=== PATIENT | male | born 1935 | race Caucasian/White ===

== ENCOUNTER 2016-07-02 10:19 | Inpatient (IN) ==
[2016-07-02] MEDS ORDERED: HYDROmorphone 2 MG/1 ML VIAL IV STA (11:13)
[2016-07-02] MEDS ORDERED: SODIUM CHLORIDE 0.9% 1,000 ML IV STA (11:13)
[2016-07-02] MEDS ORDERED: ONDANSETRON 4 MG/2 ML VIAL IV STA (11:13)
[2016-07-02] MEDS ORDERED: ALUM/MAG/SIMETH/LIDO VISC 1:1 30 ML BOTTLE PO STA (11:13)
[2016-07-02] MEDS ORDERED: PANTOPRAZOLE 40 MG VIAL IV STA (11:13)
--- NOTE | 2016-07-02 11:24 | Emergency Department Note ---
Dylan Turcios Brittany, am scribing for, and in the presence of, Mahin Parsons MD 11:22. Issa Turcios Charles R, MD, personally performed the services described in this documentation, ascribed by Kristal Richardson in my presence, and it is both accurate and complete . Arrival - Arrival Chief Complaint: Weakness Stated Complaint: ca pt/dehydrated ED Nursing Triage Note: increased weakness over the past several days after taking his last chemo and radiation for colon cancer. Mode of Arrival: Wheelchair Limitations: No Limitations Source: Patient Time Seen by Provider: 07/02/16 10:46 - History of Present Illness HPI Narrative: This is a 80 y/o white male,who presents to the ED with c/o weakness which started 6 days ago. He has a known Hx of colrectal cancer. He states after his last chemo and radiation Txs he started to feel weak. He has had N/V/D. He reports he has noticed bright red blood in his stools. He denies any pain or fever. He states normally gets weak after chemo and radiation Tx, but this time he noticed the weakness to be increased. He states he is only able to drink water. Pt has no other complaints/pain in the ED at this time. Pt has a PMHx of colrectal cancer. Pt denies a surgical and family medical Hx. Pt is a former smoker. Onset (ago): day(s) (Started 6 days ago) Consistency: constant Severity: moderate Allergies/Adverse Reactions: Allergies Allergy/AdvReac Type Severity Reaction Status Date / Time No Known Allergies Allergy Unverified 07/02/16 10:32 Review of System - Review of System 12 point system: reviewed and no additional remarkable complaints except as stated - Review of System Constitutional: Present: weakness. Absent: fever Gastrointestinal: Present: nausea, vomiting, diarrhea (Blo), hematochezia Medical,Surgical,& Family Hx - Medical History Gastrointestinal: History of: Gastrointestinal Cancer (colrectal cancer) - Social History Smoking Status: Former smoker Exam Vital Signs: Vital Signs Temperature 98.0 F 07/02/16 10:27 Pulse Rate 84 07/02/16 10:27 Respiratory Rate 18 07/02/16 10:27 Blood Pressure 138/72 07/02/16 10:27 O2 Sat by Pulse Oximetry 94 L 07/02/16 10:27 - General General appearance: alert, in no apparent distress - Head Head exam: Present: atraumatic, normocephalic, normal inspection - Eye Eye exam: Present: other (Sunken eyes, pale conjunctiva) - ENT ENT exam: Present: other (Pale Mucous membranes) - Neck Neck exam: Present: normal inspection, full ROM, trachea midline. Absent: tenderness, thyromegaly - Chest Chest inspection: Present: normal inspection, symmetric chest wall rise. Absent : tenderness, rash, abscess - Respiratory Respiratory exam: Present: normal lung sounds bilaterally. Absent: prolonged expiratory phase, rales, respiratory distress, rhonchi, stridor, wheezes - Cardiovascular Cardiovascular exam: Present: regular rate, normal rhythm, normal heart sounds. Absent: murmur, rubs, gallop, clicks - Abdominal Exam Abdominal exam: Present: soft, hypoactive bowel sounds (Decreased Bowel Sounds) . Absent: distention, tenderness, guarding, rebound, rigidity - Rectal Exam Rectal exam: Present: heme (+) stool - Extremities Exam Extremities exam: Present: normal inspection, full ROM, normal capillary refill. Absent: tenderness, joint swelling, calf tenderness - Back Exam Back exam: Present: normal inspection, full ROM. Absent: tenderness, muscle spasm, rashes - Neurological Exam Neurological exam: Present: alert, oriented X3, CN II-XII intact - Psychiatric Psychiatric exam: Present: normal affect, normal mood. Absent: depressed, agitated, anxious - Skin Skin exam: Present: warm, dry, intact, normal color. Absent: diaphoresis Course - Consultations Consultation #1: Dr. Sanders will admit patient for observation and IV fluids Time: 14:04 Results - Labs CBC & BMP: 07/02/16 11:28 07/02/16 11:28 Lab Results: I have reviewed the patients labs - Diagnostic Findings Procedure: Abdominal x-ray: report reviewed by me (Moderate amout of formed stool in the transverse colon could reflect constipation. ), Chest x-ray: report reviewed by me (No acute abnormality. ) Disposition Clinical Impression: Dehydration, History of colorectal cancer, Generalized weakness, Nausea vomiting and diarrhea Case discussed with: patient, patient's family Disposition: Still a Patient Condition: Stable Time of Disposition: 14:05
[2016-07-02 11:40] LABS: Basophils % 0.6 % (0.0-0.8); Eosinophils # 0.1 10*3/uL (0.0-0.87); Eosinophils % 3.1 % (0.00-10.9); Hematocrit 40.5 VOL% (42.0-52.0); Hemoglobin 13.9 GM/DL (14.0-18.0); Immature Granulocytes % 0.3 %; Immature Granulocytes Absolute 0.01 #; Lymphocytes # 0.2 10*3/uL (1.4-4.0); Lymphocytes % 4.2 % (21.2-54.2); Mean Corpuscular HGB Conc 34.3 GM/DL (32-36); Mean Corpuscular Hemoglobin 28 PG (27-34); Mean Corpuscular Volume 81.7 FL (87-102); Mean Platelet Volume 11.7 FL (9.6-12.0); Monocytes % 0.8 % (1.7-12.7); Neutrophils # 3.3 10*3/uL (1.4-7.4); Platelet Count 102 10*3/uL (130-400); Red Blood Count 4.96 10*6/uL (3.8-5.5); Red Cell Distribution Width 15.5 % (9.3-17.3); White Blood Count 3.6 10*3/uL (4.5-13.71)
[2016-07-02] MEDS ORDERED: ONDANSETRON 4 MG/2 ML VIAL ONE (12:00)
[2016-07-02] MEDS ORDERED: PANTOPRAZOLE 40 MG VIAL IV ONE (12:00)
[2016-07-02] MEDS ORDERED: ALUM/MAG/SIMETH/LIDO VISC 1:1 30 ML BOTTLE PO ONE (12:01)
[2016-07-02] MEDS ORDERED: HYDROmorphone 2 MG/1 ML VIAL ONE (12:01)
--- NOTE | 2016-07-02 12:06 | EKG Report ---
Stationary ECG Study [facility] ER Test Date: 07/02/2016 12:05:29 PM Pat Name: CHANCE VIVAR Department: Room: Gender: M Dat Instructor: ALEXEY Sharma : 1935 Requested by: Mahin Panda Order Number: [id number] Rafael MD: RINKU WHITLEY Intervals [place] Rate: 66 P: 88 [place]: 179 QRS: 68 QRSD: 115 T: -64 QT: 401 QTc: 415 Interpretive Statements SINUS RHYTHM LEFT VENTRICULAR HYPERTROPHY AND ST-T CHANGE Electronically Signed On 07-03-16 09:51:42 CHAIR TRIMMER by RINKU WHITLEY [id number]
[2016-07-02 12:10] LABS: Albumin 3.5 G/DL (3.4-5.0); Bilirubin,Total 1.1 MG/DL (0.2-1.0); Calcium 9.2 MG/DL (8.5-10.1); Magnesium 2.8 MG/DL (1.8-2.4); Potassium 3.3 MMOL/L (3.5-5.1); Total Protein 7.7 G/DL (6.4-8.3); Troponin I Only 0.018 NG/ML (0.00-0.045)
[2016-07-02 12:19] LABS: Band Neutrophils 1 % (0-10); Eosinophils 3 % (0-10); Hypochromasia Slight; Lymphocytes 2 % (20-55); Ovalocytes Slight; Platelet Estimate Decreased; Segmented Neutrophils 93 % (50-85); Total Cells Counted 100
--- NOTE | 2016-07-02 12:28 | XRay Report ---
XR abdomen 2V Indication: Generalized abdominal pain Comparison: None Technique: Frontal views of the abdomen in the supine and upright position Findings: Nonspecific nonobstructive bowel gas pattern. No free intraperitoneal air demonstrated. Lung bases clear. Moderate amount of formed stool demonstrated within the transverse colon. Multilevel bridging osteophytes of the lumbar spine. IMPRESSION: Moderate amount of formed stool within the transverse colon could reflect constipation. PROCEDURE INTERPRETED AT [facility] DEPARTMENT OF RADIOLOGY Final Report Signed by: Dr Luiz Irwin
--- NOTE | 2016-07-02 12:47 | XRay Report ---
Single view of the chest. Indication: Generalized abdominal pain. The heart is normal in size. There is calcific plaque present within the aortic knob. The pulmonary vasculature is normal. The lung prado are clear. No pneumothorax. No pleural effusion. Degenerative changes in the spinal column and shoulders. Impression: No acute abnormality. PROCEDURE INTERPRETED AT [facility] DEPARTMENT OF RADIOLOGY Final Report Signed by: Dr. Sydni Berkowitz
[2016-07-02] MEDS ORDERED: ACETAMINOPHEN 325 MG TABLET PO PRN (16:23)
[2016-07-02] MEDS ORDERED: MAGNESIUM HYDROXIDE SUSP 30 ML UDCUP PO PRN (16:23)
[2016-07-02] MEDS ORDERED: diphenhydrAMINE CAP 25 MG CAPSULE PO PRN (16:23)
[2016-07-02] MEDS ORDERED: BENZTROPINE 2 MG/2 ML AMP IV PRN (16:23)
[2016-07-02] MEDS ORDERED: chlorproMAZINE INJ 50 MG in SODIUM CHLORIDE 0.9% 100 ML IV PRN (16:23)
[2016-07-02] MEDS ORDERED: PROMETHAZINE INJ 25 MG in SODIUM CHLORIDE 0.9% 50 ML IV PRN (16:23)
[2016-07-02] MEDS ORDERED: SODIUM CHLORIDE 0.9% 1,000 ML IV SCH (16:23)
[2016-07-02] MEDS ORDERED: guaiFENesin 200 MG/10 ML UDCUP PO PRN (16:23)
[2016-07-02] MEDS ORDERED: MYLANTA/LIDO VISC 2:1 300 ML BOTTLE SWISH/SWAL PRN (16:23)
[2016-07-02] MEDS ORDERED: chlorproMAZINE 25 MG TABLET PO PRN (16:23)
[2016-07-02] MEDS ORDERED: traMADol 50 MG TABLET PO PRN (16:23)
[2016-07-02] MEDS ORDERED: ALUMINUM/MAGNES/SIMETH MAX STR 30 ML UDCUP PO PRN (16:23)
[2016-07-02] MEDS ORDERED: MYLANTA/LIDO VISC 2:1 300 ML BOTTLE SWISH/SPIT PRN (16:23)
[2016-07-02] MEDS ORDERED: LACTULOSE 20 GM/30 ML UDCUP PO PRN (16:23)
[2016-07-02] MEDS ORDERED: chlorproMAZINE INJ 25 MG in SODIUM CHLORIDE 0.9% 100 ML IV PRN (16:23)
[2016-07-02] MEDS ORDERED: ALPRAZolam 0.25 MG TABLET PO PRN (16:23)
[2016-07-02 17:22] LABS: Eosinophils # 0.1 10*3/uL (0.0-0.87); Eosinophils % 5.9 % (0.00-10.9); Hematocrit 33.2 VOL% (42.0-52.0); Immature Granulocytes % 0.4 %; Immature Granulocytes Absolute 0.01 #; Lymphocytes # 0.1 10*3/uL (1.4-4.0); Lymphocytes % 5.9 % (21.2-54.2); Mean Corpuscular Hemoglobin 28 PG (27-34); Mean Corpuscular Volume 81.6 FL (87-102); Mean Platelet Volume 11.7 FL (9.6-12.0); Monocytes % 1.3 % (1.7-12.7); Neutrophils # 2.1 10*3/uL (1.4-7.4); Neutrophils % 86.5 % (38.7-73.9); Red Blood Count 4.07 10*6/uL (3.8-5.5); Red Cell Distribution Width 15.4 % (9.3-17.3)
[2016-07-02 17:23] LABS: Hemoglobin 11.3 GM/DL (14.0-18.0); Platelet Count 79 10*3/uL (130-400); White Blood Count 2.4 10*3/uL (4.5-13.71)
[2016-07-02] MEDS: DEXT 5% NACL 0.9% KCL 20 MEQ 20 MEQ/1,000 ML BAG IV SCH (17:23)
[2016-07-02 17:49] LABS: Magnesium 2.7 MG/DL (1.8-2.4)
[2016-07-02 18:03] LABS: Albumin 3.1 G/DL (3.4-5.0); Bilirubin,Total 0.9 MG/DL (0.2-1.0); Calcium 7.9 MG/DL (8.5-10.1); Osmolality,Calculated 288.7 MOS/KG (273-304); Potassium 3.4 MMOL/L (3.5-5.1); Total Protein 6.4 G/DL (6.4-8.3)
[2016-07-02 18:39] LABS: Burr Cells Few; Eosinophils 4 % (0-10); Hypochromasia Slight; Lymphocytes 5 % (20-55); Ovalocytes Few; Platelet Estimate Decreased; Poikilocytosis 1+; Segmented Neutrophils 91 % (50-85); Total Cells Counted 100
[2016-07-02] MEDS: DESITIN 4OZ/NYSTATIN 15 GRAM MIXTURE PASTE TOP SCH (21:01)
[2016-07-02 23:31] LABS: Apearance,Urine CLOUDY (Clear); Bacteria,Urine Many /HPF (Few); Bilirubin,Urine Negative (Negative); Blood, Urine Small mg/dL (Negative); Glucose,Urine (UA) Negative (Negative); Ketones,Urine 20 mg/dL (Negative); Nitrite,Urine Negative (Negative); Protein,Urine Negative; RBC,Urine 7 /HPF (0-4); Squamous Epithelial Cell,Urine Occasional /HPF (0-10); Transitional Epi Cells,Urine Occasional /HPF (<1); Urine Color Amber (Yellow); Urine Specific Gravity 1.021 (1.001-1.035); WBC,Urine 93 /HPF (0-6)
[2016-07-03] MEDS: DEXT 5% NACL 0.9% KCL 20 MEQ 20 MEQ/1,000 ML BAG IV SCH ×3 (03:21→23:54)
[2016-07-03 05:27] LABS: Basophils % 0.6 % (0.0-0.8); Eosinophils # 0.3 10*3/uL (0.0-0.87); Eosinophils % 15.9 % (0.00-10.9); Hematocrit 29.9 VOL% (42.0-52.0); Hemoglobin 10.2 GM/DL (14.0-18.0); Lymphocytes # 0.1 10*3/uL (1.4-4.0); Lymphocytes % 5.7 % (21.2-54.2); Mean Corpuscular HGB Conc 34.1 GM/DL (32-36); Mean Corpuscular Hemoglobin 28 PG (27-34); Mean Corpuscular Volume 81.7 FL (87-102); Monocytes % 2.3 % (1.7-12.7); Neutrophils # 1.3 10*3/uL (1.4-7.4); Neutrophils % 75.5 % (38.7-73.9); Red Blood Count 3.66 10*6/uL (3.8-5.5); Red Cell Distribution Width 15.2 % (9.3-17.3); White Blood Count 1.8 10*3/uL (4.5-13.71)
[2016-07-03 05:31] LABS: Platelet Count 54 10*3/uL (130-400)
[2016-07-03 06:08] LABS: Alanine Aminotransferase < 9 U/L (16-61); Albumin 2.7 G/DL (3.4-5.0); Alkaline Phosphatase 61 U/L (45-117); Aspartate Amino Transferase 12 U/L (0-37); Blood Urea Nitrogen 43 MG/DL (7-18); Calcium 7.7 MG/DL (8.5-10.1); Glucose 135 MG/DL (74-106); Osmolality,Calculated 293.3 MOS/KG (273-304); Potassium 3.1 MMOL/L (3.5-5.1); Sodium 141 MMOL/L (136-145); Total Protein 5.7 G/DL (6.4-8.3)
[2016-07-03 06:17] LABS: Band Neutrophils 7 % (0-10); Eosinophils 15 % (0-10); Hypochromasia 1+; Lymphocytes 4 % (20-55); Microcytosis 1+; Ovalocytes Slight; Segmented Neutrophils 71 % (50-85); Total Cells Counted 100
[2016-07-03 06:18] LABS: Platelet Estimate Decreased
--- NOTE | 2016-07-03 07:58 | Oncology History&Physical ---
History of Present Illness History of present illness: Mr. Downs is a 80 year old male with colorectal carcinoma who has been on radiation with weekly 5-FU. I think that he has had 5 doses of chemotherapy and is approaching completion of radiation. He presented to the emergency room with severe weakness and prostration and an elevated serum creatinine. He was also having rectal bleeding which does not surprise me. The tumor was biopsied April 18, 2016 and the diagnosis was confirmed at that time. In addition to the primary tumor that extended into the presacral fat, there was also evidence of local adenopathy but no evidence of distant metastases or mesenteric adenopathy. He had a history of constipation and blood in his stools for some time prior to being evaluated. A CEA level done June 11, 2016 was 12.9. At that same time he had a normal CBC, CMP and LDH. The chemotherapy treatment consisted of medications recommended by the NCCN guidelines. This included leucovorin 40 mg IV daily for 4 days during weeks 1 and 5 of radiation and 5-FU 800 mg IV bolus daily for 4 days during weeks 1 and 5 of radiation. He completed radiation and chemotherapy last week. He continues to have persistent anorexia and this computer continues to not accept my dictations. Past medical history: Allergies: No known drug allergies Past history is positive for hypertension. ROS Gen.: Positive for a 10 kg weight loss over 2 months and 2 weeks. Eyes: No history of chronic disease, infections or visual loss. ENT: No history of chronic infections, epistaxis, chronic sore throat Lungs: No history of asthma, emphysema, hemoptysis, chronic pleurisy or long- term or chronic infections Cardiovascular: No history of angina, coronary artery disease, congestive heart failure, cardiovascular surgery or DVT/VTE GI: Positive for diarrhea, rectal bleeding, anorexia and nausea. No history of liver disease, gallbladder disease or pancreatic disease. : No history of kidney stones, chronic kidney infections or hematuria. Musculoskeletal: No history of chronic bone or joint pain or focal muscle atrophy or bone or joint deformity. Neurologic: No history of seizures, convulsions or paralysis. Psychiatric: No history of chronic psychiatric illness or psychiatric medications. Lymphatic: No history of significant or long-term lymphadenopathy Hematologic: No history of anemia, bleeding disorders or blood dyscrasias or long-term elevation or depression white cell count or petechiae. Skin: No history of chronic skin infections or rashes or significant skin lesions. Social history: He is a former smoker. He is . Family history: Negative for colon cancer or any other malignancy. Physical examination: General: The patient is acutely ill and emaciated and cachectic. Eyes: Normal lids and conjunctivae. ENT: His oral mucosa is dry. His trachea is midline and he has no neck masses. There is no tenderness. Thyroid is normal. Lungs: Sounds are normal without rubs, rales or rhonchi. There is symmetrical unlabored chest motion with respiration. Cardiovascular: His heart rhythm is regular without murmur, gallop or rub. There is no jugular venous distention, clubbing, cyanosis or edema. Abdomen: Scaphoid. No masses, organomegaly or ascites. Musculoskeletal: There is generalized muscle wasting without focal muscle atrophy or bone or joint deformity. Neurologic: Cranial nerves II through XII are intact. There are no focal neurologic deficits. Nodes: There is no submandibular, cervical, supraclavicular or axillary adenopathy. Skin: Skin turgor is poor. Impression: Acute dehydration as result of poor oral intake because of ongoing treatment for rectal cancer Locally advanced rectal cancer completing radiation chemotherapy last week Emaciation and cachexia and malnutrition Dysfunctional computer impairing documentation and patient FPC Medications Medication Instructions Recorded Confirmed Type Metoprolol Tartrate [Metoprolol 25 mg PO DAILY 07/02/16 07/02/16 History Tartrate] Prochlorperazine Tab [Compazine 5 mg PO Q4H PRN 07/02/16 07/02/16 History Tab] Allergies Allergy/AdvReac Type Severity Reaction Status Date / Time No Known Allergies Allergy Unverified 07/02/16 10:32 Medical,Surgical,& Family Hx - Medical History Cardio: History of: Hypertension Gastrointestinal: History of: Gastrointestinal Cancer (colrectal cancer) Musculoskeletal: No history of: Amputation - Surgical History Cardiac Surgeries: Patient Denies: Cardiac Catheterization Thoracic Surgeries: Patient denies;: Lobectomy Abdominal Surgeries: Patient denies: Abdominal Surgery - Social History Smoking Status: Former smoker Frequency of Alcohol Use: Occasionally Type of Drug Use: None Exam - Constitutional Vitals: Period Temp Pulse Resp BP Sys/Doe Pulse Ox Last 24 Hr 97.4 F-97.8 F 63-79 16-20 158-170/58-75 98-100 Results - Labs CBC & BMP: 07/03/16 03:59 07/03/16 03:59
[2016-07-03] MEDS ORDERED: PROCHLORPERAZINE 5 MG TABLET PO PRN (08:27)
[2016-07-03] MEDS: PANTOPRAZOLE 40 MG VIAL IV SCH (09:36)
[2016-07-03] MEDS: METOPROLOL TARTRATE 25 MG TABLET PO SCH (09:36)
[2016-07-03] MEDS: DESITIN 4OZ/NYSTATIN 15 GRAM MIXTURE PASTE TOP SCH ×2 (10:00→20:30)
[2016-07-04] MEDS: DEXT 5% NACL 0.9% KCL 20 MEQ 20 MEQ/1,000 ML BAG IV SCH ×2 (09:30→21:53)
[2016-07-04] MEDS: METOPROLOL TARTRATE 25 MG TABLET PO SCH (09:31)
[2016-07-04] MEDS: PANTOPRAZOLE 40 MG VIAL IV SCH (09:31)
[2016-07-04] MEDS: DESITIN 4OZ/NYSTATIN 15 GRAM MIXTURE PASTE TOP SCH ×2 (09:33→20:11)
[2016-07-04] MEDS: ONDANSETRON 4 MG/2 ML VIAL IV PRN (09:37)
--- NOTE | 2016-07-04 10:20 | Oncology Progress Note ---
Oncology Subjective PN Interval history: This is a patient with a very large adenocarcinoma of the rectum who has just received neoadjuvant chemoradiation. He completed the chemotherapy and the radiation last week. The chemotherapy treatment consisted of medications recommended by the NCCN guidelines. This included leucovorin 40 mg IV daily for 4 days during weeks 1 and 5 of radiation and 5-FU 800 mg IV bolus daily for 4 days during weeks 1 and 5 of radiation. He completed radiation and chemotherapy last week. He continues to have persistent anorexia and this computer continues to not accept my dictations. He was admitted with rectal bleeding that appears to be subsiding. He is also probably passing tissue and clots from his rectum as result of tumor necrosis. He remains too weak to be discharged. We are continuing IV fluids with additives and also we are continuing to monitor blood work on a daily basis. The patient had planned to have surgery to resect this cancer in [facility] but I explained to him that if he begins to bleed briskly or if he becomes obstructed that he will need to be considered for surgery here. I have not placed a surgery consult however. It is my expectation that he will improve and once his strength is better, he can go home. However he is still critically ill now and needs to be monitored at least for couple more days while receiving IV fluids with additives. He is also requiring oral narcotics for pain relief. Exam - Constitutional Vitals: Period Temp Pulse Resp BP Sys/Doe Pulse Ox Last 24 Hr 97.1 F-98.4 F 54-64 20-20 148-182/65-77 97-100 Results - Labs CBC & BMP: 07/03/16 03:59 07/03/16 03:59
--- NOTE | 2016-07-04 10:33 | Oncology Progress Note ---
Exam - Constitutional Vitals: Period Temp Pulse Resp BP Sys/Doe Pulse Ox Last 24 Hr 97.1 F-98.4 F 54-64 20-20 148-182/65-77 97-100 Results - Labs CBC & BMP: 07/03/16 03:59 07/03/16 03:59
[2016-07-04 10:44] LABS: Eosinophils # 0.1 10*3/uL (0.0-0.87); Eosinophils % 30.6 % (0.00-10.9); Hematocrit 30.8 VOL% (42.0-52.0); Hemoglobin 10.2 GM/DL (14.0-18.0); Lymphocytes # 0.1 10*3/uL (1.4-4.0); Lymphocytes % 19.4 % (21.2-54.2); Mean Corpuscular HGB Conc 33.1 GM/DL (32-36); Mean Corpuscular Hemoglobin 28 PG (27-34); Mean Corpuscular Volume 83.9 FL (87-102); Mean Platelet Volume 11.7 FL (9.6-12.0); Monocytes % 5.6 % (1.7-12.7); Neutrophils # 0.2 10*3/uL (1.4-7.4); Neutrophils % 44.4 % (38.7-73.9); Red Blood Count 3.67 10*6/uL (3.8-5.5); Red Cell Distribution Width 15.4 % (9.3-17.3)
[2016-07-04 10:47] LABS: Platelet Count 31 10*3/uL (130-400); White Blood Count 0.4 10*3/uL (4.5-13.71)
[2016-07-04 11:03] LABS: Albumin 2.7 G/DL (3.4-5.0); Bilirubin,Total 0.9 MG/DL (0.2-1.0); Total Protein 5.8 G/DL (6.4-8.3)
[2016-07-04 11:04] LABS: Magnesium 2.4 MG/DL (1.8-2.4); Osmolality,Calculated 295.6 MOS/KG (273-304); Potassium 4.4 MMOL/L (3.5-5.1)
[2016-07-04 11:08] LABS: Eosinophils 20 % (0-10); Lymphocytes 10 % (20-55); Platelet Estimate Decreased; Segmented Neutrophils 70 % (50-85); Total Cells Counted 100
[2016-07-04 11:09] LABS: Hypochromasia Slight; Microcytosis 1+
[2016-07-04] MEDS ORDERED: SODIUM CHLORIDE 0.9% 250 ML IV PRN (11:36)
[2016-07-04] MEDS: FILGRASTIM-SNDZ 300 MCG/0.5 ML SYRINGE SUBCUT SCH (14:49)
[2016-07-04] MEDS: LEVOFLOXACIN INJ 750 MG in PREMIX 1 EACH IV SCH (15:16)
[2016-07-04] MEDS: TEMAZEPAM 7.5 MG CAPSULE PO PRN (20:11)
[2016-07-05] MEDS: DEXT 5% NACL 0.9% KCL 20 MEQ 20 MEQ/1,000 ML BAG IV SCH ×2 (08:30→20:01)
--- NOTE | 2016-07-05 09:27 | Oncology Progress Note ---
Assessment and Plan (1) Dehydration Status: Acute Current Visit: Yes (2) History of colorectal cancer Status: Acute Current Visit: Yes (3) Generalized weakness Status: Acute Current Visit: Yes (4) Nausea vomiting and diarrhea Status: Acute Current Visit: Yes Oncology Subjective PN Interval history: He has no new complaints today. He is still quite weak. There is some mild thrush on his oropharynx so I will place him on nystatin swish and swallow. I will order labs for today to keep a close watch on his neutropenia. His platelet count is also been following. We will continue daily CBCs. We'll continue with his Neupogen. We'll also continue IV fluid rehydration. On exam his lungs are clear, his abdomen is soft, and skin is warm and dry. He is alert known to person place and time. Exam - Constitutional Vitals: Period Temp Pulse Resp BP Sys/Doe Pulse Ox Last 24 Hr 96.1 F-101.4 F 62-109 16-20 107-177/53-76 95-100 General appearance: no acute distress, under weight - Head Head Exam: Present: normocephalic, atraumatic - Eye Eye Exam: Present: EOMI Pupils: Present: PERRL - Neck Neck exam: Absent: lymphadenopathy, thyromegaly - Respiratory Respiratory exam: Present: CTAB. Absent: wheezes - Cardiovascular Cardiovascular exam: Absent: irregular rhythm, JVD - GI/Abdominal GI/Abdominal exam: Present: soft. Absent: ascites, distended, mass - Neurological Exam Neurological exam: Present: alert, oriented X3 Results - Labs CBC & BMP: 07/04/16 09:49 07/04/16 09:49 Lab Results: I have reviewed the past 24 hour labs
[2016-07-05] MEDS: METOPROLOL TARTRATE 25 MG TABLET PO SCH (10:33)
[2016-07-05] MEDS: PANTOPRAZOLE 40 MG VIAL IV SCH (10:33)
[2016-07-05 10:34] LABS: Eosinophils % 18.2 % (0.00-10.9); Hematocrit 29.2 VOL% (42.0-52.0); Hemoglobin 9.7 GM/DL (14.0-18.0); Lymphocytes % 36.4 % (21.2-54.2); Mean Corpuscular HGB Conc 33.2 GM/DL (32-36); Mean Corpuscular Hemoglobin 28 PG (27-34); Mean Corpuscular Volume 83.7 FL (87-102); Monocytes % 9.1 % (1.7-12.7); Neutrophils % 36.3 % (38.7-73.9); Red Blood Count 3.49 10*6/uL (3.8-5.5); Red Cell Distribution Width 15.7 % (9.3-17.3)
[2016-07-05] MEDS: FILGRASTIM-SNDZ 300 MCG/0.5 ML SYRINGE SUBCUT SCH (10:35)
[2016-07-05] MEDS: DESITIN 4OZ/NYSTATIN 15 GRAM MIXTURE PASTE TOP SCH ×2 (10:35→20:02)
[2016-07-05 10:44] LABS: Platelet Count 35 10*3/uL (130-400); White Blood Count 0.1 10*3/uL (4.5-13.71)
[2016-07-05 11:01] LABS: Eosinophils 20 % (0-10); Lymphocytes 40 % (20-55); Segmented Neutrophils 30 % (50-85); Total Cells Counted 100
[2016-07-05 11:02] LABS: Hypochromasia Slight; Microcytosis Slight; Ovalocytes Slight
[2016-07-05 11:03] LABS: Platelet Estimate Decreased
[2016-07-05] MEDS: LEVOFLOXACIN INJ 750 MG in PREMIX 1 EACH IV SCH (11:53)
[2016-07-05] MEDS: NYSTATIN 500,000 UNIT/5 ML UDCUP SWISH/SWAL SCH ×2 (15:18→20:03)
[2016-07-05] MEDS: ONDANSETRON 4 MG/2 ML VIAL IV PRN (15:20)
[2016-07-05] MEDS: LOPERAMIDE 2 MG CAPSULE PO PRN (16:40)
[2016-07-05] MEDS: TEMAZEPAM 7.5 MG CAPSULE PO PRN (20:02)
[2016-07-06 03:48] LABS: Calcium 7.3 MG/DL (8.5-10.1); Magnesium 2.2 MG/DL (1.8-2.4); Osmolality,Calculated 297.4 MOS/KG (273-304)
[2016-07-06 03:50] LABS: Hematocrit 28.9 VOL% (42.0-52.0); Hemoglobin 9.6 GM/DL (14.0-18.0); Lymphocytes % 44.4 % (21.2-54.2); Mean Corpuscular HGB Conc 33.2 GM/DL (32-36); Mean Corpuscular Hemoglobin 27 PG (27-34); Mean Corpuscular Volume 81.9 FL (87-102); Monocytes % 11.1 % (1.7-12.7); Neutrophils % 44.5 % (38.7-73.9); Red Blood Count 3.53 10*6/uL (3.8-5.5); Red Cell Distribution Width 15.9 % (9.3-17.3)
[2016-07-06 04:02] LABS: Platelet Count 30 10*3/uL (130-400); White Blood Count 0.1 10*3/uL (4.5-13.71)
[2016-07-06 04:46] LABS: Anisocytosis Slight; Band Neutrophils 10 % (0-10); Elliptocytes Few; Eosinophils 10 % (0-10); Lymphocytes 40 % (20-55); Microcytosis Slight; Ovalocytes 1+; Platelet Estimate Decreased; Segmented Neutrophils 20 % (50-85); Total Cells Counted 100
[2016-07-06] MEDS: DEXT 5% NACL 0.9% KCL 20 MEQ 20 MEQ/1,000 ML BAG IV SCH ×2 (04:48→15:21)
[2016-07-06] MEDS: LOPERAMIDE 2 MG CAPSULE PO PRN ×3 (09:17→20:49)
[2016-07-06] MEDS: PANTOPRAZOLE 40 MG VIAL IV SCH (09:17)
[2016-07-06] MEDS: METOPROLOL TARTRATE 25 MG TABLET PO SCH (09:17)
[2016-07-06] MEDS: DESITIN 4OZ/NYSTATIN 15 GRAM MIXTURE PASTE TOP SCH ×2 (09:32→20:50)
[2016-07-06] MEDS ORDERED: MORPHINE 2 MG/1 ML SYRINGE IV PRN (09:41)
--- NOTE | 2016-07-06 09:41 | Oncology Progress Note ---
Assessment and Plan (1) Dehydration Status: Acute Current Visit: Yes (2) History of colorectal cancer Status: Acute Current Visit: Yes (3) Generalized weakness Status: Acute Current Visit: Yes (4) Nausea vomiting and diarrhea Status: Acute Current Visit: Yes Oncology Subjective PN Interval history: He continues to remain weak. His neutrophil count is still almost 0. He is having significant diarrhea. It is difficult to manage since he is not taking in very much by mouth. We will add parenteral narcotics for pain control. We' ll continue with IV fluids. He seems to be having normal urine output. We will increase his dose of Neupogen to 480 g daily. Overall he is unchanged from yesterday other than the worsening diarrhea. Hopefully most of his symptoms will improve once his white count recovers. Exam - Constitutional Vitals: Period Temp Pulse Resp BP Sys/Doe Pulse Ox Last 24 Hr 98.4 F-99.4 F 52-84 18-20 140-174/64-72 93-96 Results - Labs CBC & BMP: 07/06/16 02:41 07/06/16 02:41
[2016-07-06] MEDS: LEVOFLOXACIN INJ 750 MG in PREMIX 1 EACH IV SCH (12:03)
[2016-07-06] MEDS: NYSTATIN 500,000 UNIT/5 ML UDCUP SWISH/SWAL SCH ×3 (14:55→20:49)
[2016-07-06] MEDS: MORPHINE 2 MG/1 ML SYRINGE IV PRN ×2 (15:15→20:49)
[2016-07-07] MEDS: DEXT 5% NACL 0.9% KCL 20 MEQ 20 MEQ/1,000 ML BAG IV SCH ×3 (01:07→23:32)
[2016-07-07 06:08] LABS: Hemoglobin 8.8 GM/DL (14.0-18.0); Lymphocytes # 0.1 10*3/uL (1.4-4.0); Lymphocytes % 45.5 % (21.2-54.2); Mean Corpuscular HGB Conc 32.6 GM/DL (32-36); Mean Corpuscular Hemoglobin 27 PG (27-34); Mean Corpuscular Volume 83.6 FL (87-102); Mean Platelet Volume 11.3 FL (9.6-12.0); Monocytes % 9.1 % (1.7-12.7); Neutrophils # 0.1 10*3/uL (1.4-7.4); Neutrophils % 45.4 % (38.7-73.9); Platelet Count 26 10*3/uL (130-400); Red Blood Count 3.23 10*6/uL (3.8-5.5); Red Cell Distribution Width 16.3 % (9.3-17.3)
[2016-07-07 06:16] LABS: White Blood Count 0.1 10*3/uL (4.5-13.71)
[2016-07-07 06:50] LABS: Eosinophils 40 % (0-10); Lymphocytes 60 % (20-55); Platelet Estimate Decreased; Total Cells Counted 100
[2016-07-07 06:51] LABS: Burr Cells Slight; Hypochromasia Slight; Microcytosis Slight; Ovalocytes Slight
--- NOTE | 2016-07-07 07:28 | Physician Query Form ---
CLICK EDIT DOCUMENT TO SELECT QUERY ANSWER --> OK --> SIGN Halle Maya RN, CCDS Certified Clinical Truck Trailer Final Inspector W) [phone] (f) [phone] [email or web address] PROVIDERS: Make your selection(s) from the choices in EACH section by typing an "x" and enter comments in the comment section. Please use your independent medical judgment in providing your response. This request does not imply that any particular answer is desired or expected. CLINICAL INDICATORS: (Providers should not edit this section) The medical record indicates that the patient was admitted with NVD, hx of colorectal cancer (chemo and radiation), WBC of 2.4/ HH 11.3/ 33.2/ plt of 79 and the patient is being treated with Platelets/ Neupogen. Based on the above, could you clarify which of the following conditions you are evaluating, treating, and/or monitoring? ( ) Blood loss anemia ( ) acute ( ) chronic ( ) acute on chronic ( ) Acute blood loss anemia on baseline chronic anemia ( ) Acute blood loss anemia as a complication of a procedure ( ) Iron deficiency anemia not associated with blood loss ( ) Dilutional anemia due to IV fluids ( ) Anemia due to chemotherapy ( ) Anemia due to neoplastic disease ( ) Anemia due to chronic kidney disease ( ) Pernicious anemia ( ) Aplastic anemia ( ) Hemolytic anemia ( ) immune ( ) non-immune - please specify cause: ( ) Anemia due to other condition, please specify: ( ) Clinically unable to determine COMMENTS: Use of terms such as suspected, likely, or probable (associated with a specific diagnosis that is being evaluated, monitored, or treated as if it exists) are acceptable and can be restated in the discharge summary if not ruled out. MTDD
--- NOTE | 2016-07-07 07:29 | Physician Query Form ---
CLICK EDIT DOCUMENT TO SELECT QUERY ANSWER --> OK --> SIGN Halle Maya RN, CCDS Certified Clinical [facility] W) [phone] (f) [phone] [email or web address] PROVIDERS: Make your selection(s) from the choices in EACH section by typing an "x" and enter comments in the comment section. Please use your independent medical judgment in providing your response. This request does not imply that any particular answer is desired or expected. CLINICAL INDICATORS: (Providers should not edit this section) The medical record indicates that the patient was admitted with NVD, Urine CS on the "Pseudomonas aeruginosa", Urine WBC of 93#, Urine Leukocytes (Large) , and the patient is on Antibiotics. Based on the above, could you clarify the appropriate diagnosis, if significant , that supports the above abnormalities and additional evaluation, monitoring, and/or treatment rendered: ( ) patient is not being monitored or treated for a UTI ( ) patient is being monitored or treated for a UTI ( ) Other, please specify: ( ) Clinically unable to determine COMMENTS: Use of terms such as suspected, likely, or probable (associated with a specific diagnosis that is being evaluated, monitored, or treated as if it exists) are acceptable and can be restated in the discharge summary if not ruled out. MTDD
--- NOTE | 2016-07-07 07:47 | Oncology Progress Note ---
Oncology Subjective PN Interval history: Patient with rectal cancer post neoadjuvant chemotherapy and radiation. Severely neutropenic. His white cell count is 100. Also GI bleeding. Some of the anemia is probably due to chemotherapy as well. Although he is emaciated and cachectic as well as severely neutropenic, his condition is relatively stable and I am hoping that he will improve quickly now. He is on granulocyte colony-stimulating factor and we are monitoring lab work daily. His oral mucosa is not particularly rale. Lids and conjunctivae are normal. His mouth and pharynx are normal. He is emaciated, cachectic and malnourished. He has no obvious focal neurologic deficits. He tells me that the GI blood loss is significantly decreased. Exam - Constitutional Vitals: Period Temp Pulse Resp BP Sys/Doe Pulse Ox Last 24 Hr 97.2 F-100.9 F 52-111 18-24 124-179/58-79 95-100 Results - Labs CBC & BMP: 07/07/16 04:29 07/06/16 02:41
[2016-07-07] MEDS: PANTOPRAZOLE 40 MG VIAL IV SCH (08:57)
[2016-07-07] MEDS: FILGRASTIM-SNDZ 480 MCG/0.8 ML SYRINGE SUBCUT SCH (09:01)
[2016-07-07] MEDS: NYSTATIN 500,000 UNIT/5 ML UDCUP SWISH/SWAL SCH ×3 (09:02→20:52)
[2016-07-07] MEDS: METOPROLOL TARTRATE 25 MG TABLET PO SCH (09:04)
[2016-07-07] MEDS: DESITIN 4OZ/NYSTATIN 15 GRAM MIXTURE PASTE TOP SCH ×2 (09:05→20:53)
--- NOTE | 2016-07-07 10:07 | Physician Query Form ---
CLICK EDIT DOCUMENT TO SELECT QUERY ANSWER --> OK --> SIGN Halle Maya RN, CCDS Certified Clinical Methane Gas Collection System Operator W) [phone] (f) [phone] [email or web address] PROVIDERS: Make your selection(s) from the choices in EACH section by typing an "x" and enter comments in the comment section. Please use your independent medical judgment in providing your response. This request does not imply that any particular answer is desired or expected. CLINICAL INDICATORS: (Providers should not edit this section) The medical record indicates that the patient was admitted with NVD, Urine CS on the "Pseudomonas aeruginosa", Urine WBC of 93#, Urine Leukocytes (Large) , and the patient is on Antibiotics. Based on the above, could you clarify the appropriate diagnosis, if significant , that supports the above abnormalities and additional evaluation, monitoring, and/or treatment rendered: ( ) patient is not being monitored or treated for a UTI ( ) patient is being monitored or treated for a UTI ( ) Other, please specify: ( ) Clinically unable to determine COMMENTS: Use of terms such as suspected, likely, or probable (associated with a specific diagnosis that is being evaluated, monitored, or treated as if it exists) are acceptable and can be restated in the discharge summary if not ruled out. MTDD
[2016-07-07] MEDS: LEVOFLOXACIN INJ 750 MG in PREMIX 1 EACH IV SCH (12:37)
--- NOTE | 2016-07-08 08:36 | Oncology Progress Note ---
Oncology Subjective PN Interval history: Today's lab work is pending because the order for it disappeared from the electronic medical record. It is finally back in his white cell count is still only 100. In addition, he is hypotensive. He is on a beta-lisseth and I am going to have to adjust the dose of it. I am ordering an EKG as well. It just came back and demonstrates A. fib. I am consulting cardiology. He is extremely weak and debilitated. This is a very critical situation at this point. His blood counts should be recovering by now and they have not really begun to do so. The chemotherapy was used is that that is recommended in the NCC guidelines. At this point, there is a significant contraindication to any kind of invasive procedure and that he has no neutrophils. Exam - Constitutional Vitals: Period Temp Pulse Resp BP Sys/Doe Pulse Ox Last 24 Hr 97.7 F-99.7 F 100-127 18-24 92-112/52-59 95-97 Results - Labs CBC & BMP: 07/08/16 08:32 07/08/16 08:32
[2016-07-08 08:48] LABS: Hematocrit 25.6 VOL% (42.0-52.0); Hemoglobin 8.5 GM/DL (14.0-18.0); Mean Corpuscular HGB Conc 33.2 GM/DL (32-36); Mean Corpuscular Hemoglobin 28 PG (27-34); Mean Corpuscular Volume 83.7 FL (87-102); Mean Platelet Volume 12.9 FL (9.6-12.0); Monocytes % 12.5 % (1.7-12.7); Neutrophils % 37.5 % (38.7-73.9); Red Blood Count 3.06 MC/CUMM (3.8-5.5)
[2016-07-08 08:54] LABS: Platelet Count 24 T/CUMM (130-400); White Blood Count 0.1 T/CUMM (4-12)
[2016-07-08 09:19] LABS: Eosinophils 50 % (0-10); Lymphocytes 50 % (20-55); Total Cells Counted 100
[2016-07-08 09:20] LABS: Burr Cells Slight; Microcytosis Slight; Ovalocytes Slight; Platelet Estimate Decreased
--- NOTE | 2016-07-08 09:23 | EKG Report ---
Stationary ECG Study [facility] Test Date: 07/08/2016 9:21:50 AM Pat Name: CHANCE VIVAR Department: Room: 441 Gender: M [employer] Erp Architect: DELVIS : 1935 Requested by: Avery López Order Number: [id number] Reading MD: ESE ALMANZAR Intervals [place] Rate: 130 P: 999 OR: 0 QRS: 9 QRSD: 110 T: 160 QT: 258 QTc: 335 Interpretive Statements ATRIAL FIBRILLATION WITH RAPID VENTRICULAR RESPONSE MARKED ST DEPRESSION, CONSIDER SUBENDOCARDIAL INJURY Electronically Signed On 07-08-16 18:13:35 BOX NAILER by ESE ALMANZAR [id number]
[2016-07-08 09:24] LABS: Albumin 1.6 G/DL (3.4-5.0); Bilirubin,Total 1.2 MG/DL (0.2-1.0); Calcium 7.2 MG/DL (8.5-10.1); Osmolality,Calculated 302.1 MOS/KG (273-304); Potassium 5.1 MMOL/L (3.5-5.1); Total Protein 4.3 G/DL (6.4-8.3)
[2016-07-08] MEDS: DEXT 5% NACL 0.9% KCL 20 MEQ 20 MEQ/1,000 ML BAG IV SCH ×2 (09:51→22:16)
[2016-07-08] MEDS: FILGRASTIM-SNDZ 480 MCG/0.8 ML SYRINGE SUBCUT SCH (09:52)
[2016-07-08] MEDS: NYSTATIN 500,000 UNIT/5 ML UDCUP SWISH/SWAL SCH ×3 (09:53→20:54)
[2016-07-08] MEDS: PANTOPRAZOLE 40 MG VIAL IV SCH (09:55)
[2016-07-08] MEDS: METOPROLOL TARTRATE 25 MG TABLET PO SCH (09:57)
[2016-07-08] MEDS: DESITIN 4OZ/NYSTATIN 15 GRAM MIXTURE PASTE TOP SCH ×2 (09:57→20:54)
--- NOTE | 2016-07-08 10:24 | Cardiology Consult Note ---
Assessment and Plan - Time spent with patient Time spent with patient: Greater than 30 minutes (Examination documentation chart review) (1) Atrial fibrillation, new onset Status: Acute Assessment and plan: As per HPI Current Visit: Yes (2) Metabolic acidosis Status: Acute Current Visit: Yes (3) Pancytopenia Status: Acute Current Visit: Yes (4) Dehydration Status: Acute Current Visit: Yes (5) History of colorectal cancer Status: Acute Current Visit: Yes History of Present Illness - Data of Consult Patient: new to practice Consult date: 07/08/16 Requesting Physician: Avery Sanders - Consult Narrative Reason for consult: New onset atrial fibrillation History of present illness: Mr. Downs is a 80 year old male with no known cardiac history who is pancytopenic after chemotherapy for advanced colorectal carcinoma. He also has some lower GI bleed after radiation. Today the patient has an EKG that shows atrial fibrillation. He has what appears to be possibly some subendocardial ischemic changes most likely this is just due to his right. He has been in sinus rhythm at this point by his previous ECGs. The patient is critically ill and at a low point at this time his cell counts are all low. He denies any chest pain although he denies dyspnea he is tachypneic on my exam. He has no known history of coronary artery disease. The patient is currently on a low dose of metoprolol tartrate daily. His blood pressures have been acceptable and his heart rate is less than 120. Consideration could be given to transferring either to the ICU or the telemetry unit for IV infusion of medications although I think given his paucity of symptoms and the fact that he is major diagnosis is his malignancy and side effects from his medications I feel it is best to try to keep him here if at all possible. I will increase his oral metoprolol and try to manage on the oncology floor with a mode monitor. If he becomes unstable consider transferring to the ICU. I think it is in the patient's best interest to remain on the oncology floor. If the patient has any worsening hemodynamic status with a beta-lisseth consider adding oral Cardizem. Obviously his severely depressed cell lines and his rectal bleeding make him not a candidate for anticoagulation. We will be required to accept the risk of stroke at this time. His comorbidities outweigh the risk of his stroke risk in the short-term. Hopefully his cell lines will continue to improve his bleeding will cease and we will be able to start anticoagulation at some point in the future if he remains in atrial fibrillation. I will get echocardiogram today and discuss structural abnormalities. CC: Avery Sanders MD - Home Medications and Allergies Home Medications: Home Medications Medication Instructions Recorded Confirmed Type Metoprolol Tartrate [Metoprolol 25 mg PO DAILY 07/02/16 07/02/16 History Tartrate] Prochlorperazine Tab [Compazine 5 mg PO Q4H PRN 07/02/16 07/02/16 History Tab] Allergies/Adverse Reactions: Allergies Allergy/AdvReac Type Severity Reaction Status Date / Time No Known Allergies Allergy Unverified 07/02/16 10:32 - Constitutional Constitutional: Present: anorexia, fatigue, lethargy, malaise - EENT Eyes: Absent: diplopia Nose, mouth and throat: Present: sore throat, throat swelling - Cardiovascular Cardiovascular: Present: dyspnea, dyspnea on exertion. Absent: chest pain at rest, chest pain with activity, edema, lightheadedness, orthopnea, palpitations - Respiratory Respiratory: Present: cough, dyspnea on exertion - Gastrointestinal Gastrointestinal: Present: heartburn, hematochezia - Genitourinary Genitourinary: Present: difficulty urinating. Absent: dysuria - Musculoskeletal Musculoskeletal: Present: arthralgias - Neurological Neurological: Present: abnormal gait, other (lots of pain in his feet.) - Psychiatric Psychiatric: Present: depression - Endocrine Endocrine: Absent: cold intolerance - Hematologic/Lymphatic Hematologic/Lymphatic: Present: easy bleeding Medical,Surgical,& Family Hx - Medical History Cardio: History of: Hypertension Gastrointestinal: History of: Gastrointestinal Cancer (colrectal cancer) Musculoskeletal: No history of: Amputation - Surgical History Cardiac Surgeries: Patient Denies: Cardiac Catheterization Thoracic Surgeries: Patient denies;: Lobectomy Abdominal Surgeries: Patient denies: Abdominal Surgery - Social History Smoking Status: Former smoker Frequency of Alcohol Use: Occasionally Type of Drug Use: None Marital Status: Lives With:: Alone Functional capacity: independent ambulation Physical Examination Vital Signs Temp Pulse Resp BP Pulse Ox 98.0 F 84 18 138/72 94 L 07/02/16 10:27 07/02/16 10:27 07/02/16 10:27 07/02/16 10:27 07/02/16 10:27 General: Present: Other (Ill appearing very weak and frail for his age) HEENT: Present: Normocephaly Neck: Present: Supple Neck, Midline Trachea Cardiac: Present: Irregularly Regular (It is of 110 PMI is difficult to localize to precordium is hyperdynamic) Lungs: Present: Scattered Rhonchi (Endotracheal or upper airway noise) Abdomen: Present: Soft, Active Bowel Sounds Extremities: Present: +1 Edema Result/EKG - Labs CBC & BMP: 07/08/16 08:32 07/08/16 08:32 Labs: Laboratory Results - last 24 hr 07/08/16 07/08/16 08:32 08:32 WBC 0.1 L* RBC 3.06 L Hgb 8.5 L Hct 25.6 L MCV 83.7 L MCH 28 MCHC 33.2 RDW 17.0 Plt Count 24 L* MPV 12.9 H Neut % (Auto) 37.5 L Lymph % (Auto) 50.0 [place] % (Auto) 12.5 Eos % (Auto) 0.0 Baso % (Auto) 0.0 Neut # (Auto) 0.0 L Lymph # (Auto) 0.0 L [place] # (Auto) 0.0 L Eos # (Auto) 0.0 Baso # (Auto) 0.0 Total Counted 100 Immature Gran % 0.0 Nucleated RBC % 0.0 Immature Gran # 0.00 Lymphocytes 50 Eosinophils 50 H Nucleated RBCs # 0.00 Platelet Estimate Decreased Microcytosis Slight Ovalocytes Slight [place] Cells Slight Morphology Comment Sodium 149 H Potassium 5.1 Chloride 120 H Carbon Dioxide 17 L Anion Gap 17.1 H BUN 29 H Creatinine 1.40 H GFR Calculation 50 BUN/Creatinine Ratio 20.00 Glucose 121 H Calculated Osmolality 302.1 Calcium 7.2 L Total Bilirubin 1.20 H AST 38 H ALT 13 L Alkaline Phosphatase 49 Lactate Dehydrogenase 133 Total Protein 4.3 L Albumin 1.6 L Globulin 2.7 Albumin/Globulin Ratio 0.5 L - EKG EKG results: interpreted by me (Beto fib with subendocardial ST segment)
[2016-07-08] MEDS: LEVOFLOXACIN INJ 750 MG in PREMIX 1 EACH IV SCH (14:07)
--- NOTE | 2016-07-08 14:28 | ECHO Report ---
Gareth Downs Exam Date: 07/08/2016 11:26 Referring Physician: Technologist: Radha Wheeler RDCS Age: 80 Ht (in): Wt (lb): Gender: M Exam Location: [facility] Echo Indications: Colorectal CA, Dehydration, Weakness, Atrial fibrillation BP: / HR: Rhythm: Atrial fibrillation Technical Quality: Fair IMPRESSIONS EF 45 %. Anteroseptal and apical hypokinesis. The right ventricle is normal in size and function. Moderately increased right atrial size. Moderately increased left atrial size. Thickened mitral valve. Mild mitral valve regurgitation. Aortic valve sclerosis. Trace aortic valve regurgitation. [id number] tricuspid valve regurgitation. [id number]. Pulmonic valve not well visualized. Normal pericardium without effusion. Normal ascending aorta dimension. MEASUREMENTS (Male / Female) Normal Values 2D ECHO LV Diastolic Diameter PLAX 5.3 cm 4.2 - 5.9 / 3.9 - 5.3 cm LV Systolic Diameter PLAX 3.6 cm LV Fractional Shortening PLAX 32.3 % IVS Diastolic Thickness 1.0 cm 0.6 - 1.0 / 0.6 - 0.9 cm LVPW Diastolic Thickness 1.0 cm 0.6 - 1.0 / 0.6 - 0.9 cm RV Internal Dim ED PLAX 3.5 cm Aortic Root Diameter 2.9 cm LA Systolic Diameter LX 4.3 cm 3.0 - 4.0 / 2.7 - 3.8 cm DOPPLER TR Peak Velocity 333.0 cm/s TR Peak Gradient 44.4 mmHg FINDINGS Left Ventricle EF 45 %. Anteroseptal and apical hypokinesis. Right Ventricle The right ventricle is normal in size and function. Right Atrium Moderately increased right atrial size. Left Atrium Moderately increased left atrial size. Mitral Valve Thickened mitral valve. Mild mitral valve regurgitation. Aortic Valve Aortic valve sclerosis. Trace aortic valve regurgitation. Tricuspid Valve Morphologically normal tricuspid valve. [id number]-[id number] tricuspid valve regurgitation. [id number]. Pulmonic Valve Pulmonic valve not well visualized. Pericardium Normal pericardium without effusion. Aorta Normal ascending aorta dimension. Danyel Singh (Electronically Signed) Final Date: 08 July 2016 14:27
[2016-07-08] MEDS ORDERED: METOPROLOL TARTRATE 25 MG TABLET PO ONE (15:38)
[2016-07-08] MEDS ORDERED: METOPROLOL TARTRATE 25 MG TABLET PO SCH (21:00)
[2016-07-09 03:45] LABS: Eosinophils % 22.2 % (0.00-10.9); Hematocrit 22.7 VOL% (42.0-52.0); Hemoglobin 7.7 GM/DL (14.0-18.0); Lymphocytes % 44.4 % (21.2-54.2); Mean Corpuscular HGB Conc 33.9 GM/DL (32-36); Mean Corpuscular Hemoglobin 28 PG (27-34); Mean Corpuscular Volume 82.2 FL (87-102); Mean Platelet Volume 11.8 FL (9.6-12.0); Monocytes % 11.1 % (1.7-12.7); Neutrophils % 22.3 % (38.7-73.9); Red Blood Count 2.76 MC/CUMM (3.8-5.5); Red Cell Distribution Width 17.2 % (9.3-17.3)
[2016-07-09 03:49] LABS: Platelet Count 20 T/CUMM (130-400); White Blood Count 0.1 T/CUMM (4-12)
[2016-07-09 04:31] LABS: Albumin 1.5 G/DL (3.4-5.0); Bilirubin,Total 1.8 MG/DL (0.2-1.0); Calcium 7.3 MG/DL (8.5-10.1); Potassium 4.3 MMOL/L (3.5-5.1); Total Protein 4.1 G/DL (6.4-8.3)
[2016-07-09 04:42] LABS: Eosinophils 16 % (0-10); Lymphocytes 48 % (20-55); Segmented Neutrophils 32 % (50-85)
[2016-07-09 04:43] LABS: Burr Cells 3+; Elliptocytes 2+; Platelet Estimate Decreased
[2016-07-09 04:44] LABS: Total Cells Counted 100
[2016-07-09 05:34] VITALS: BP 111/54
--- NOTE | 2016-07-09 06:15 | Event Note ---
note I responded to overhead CODE GRAHAM called at approximately 05 40. I arrived at the bedside to find the patient without respirations. He had no cardiac tones and no palpable pulse. CPR was initiated. Dr. Maya responded from the emergency room and got an airway while CPR was initiated in the process of bagging the patient. The nurses at the bedside reported that the patient was "fine" until just after his platelets and then he rolled over in bed and "did this". The patient's 11 04 vitals were quite good with a heart rate of 112 and blood pressure was also acceptable. Apparently the patient had no complaints but had sudden . ACLS protocol was initiated the patient received atropine and epinephrine CPR intubation with mechanical ventilation documented by respiratory sounds and CO2 meter. His initial rhythm appeared to be agonal QRS complexes. Atropine and epinephrine were given. Patient experienced ventricular fibrillation received a single cardioversion with 300 J. This resulted in what appeared to be a wide but reasonable right complex. There were no cardiac tones or palpable pulse or respiratory effort with this rhythm. The patient was pronounced at 0601 with pulseless electrical activity. I called the patient's listed NOK, son Pietro Downs at and he was not at home but at work in [place], [place]. I talked to his and Mr. Downs is aware of his Father's . He is en route to [facility] from his job in [facility].
--- NOTE | 2016-07-09 08:57 | Discharge Summary ---
Discharge Plan - Discharge Data Disposition: - Discharge Medications No Action Metoprolol Tartrate [Metoprolol Tartrate] 25 mg PO DAILY Prochlorperazine Tab [Compazine Tab] 5 mg PO Q4H PRN PRN Reason: Nausea/Vomiting - Follow Up or Referral - Forms/Instructions Exam - Constitutional Vitals: Period Temp Pulse Resp BP Sys/Doe Pulse Ox Last 24 Hr 96.7 F-97.9 F 94-123 20-32 89-111/50-60 92-100 Discharge Results Procedures and tests throughout hospitalization: Pending Orders 07/10/16 04:00 Comp Blood Count Auto Diff IN AM LDH [Lactate Dehydrogenase] IN AM 07/11/16 04:00 Comp Blood Count Auto Diff IN AM LDH [Lactate Dehydrogenase] IN AM 07/12/16 04:00 Comp Blood Count Auto Diff IN AM LDH [Lactate Dehydrogenase] IN AM 07/13/16 04:00 Comp Blood Count Auto Diff IN AM LDH [Lactate Dehydrogenase] IN AM 07/14/16 04:00 Comp Blood Count Auto Diff IN AM Labs on day of discharge: Labs from last 24 hours 07/09/16 07/09/16 07/08/16 03:31 03:31 08:32 WBC 0.1 L* RBC 2.76 L Hgb 7.7 L Hct 22.7 L MCV 82.2 L MCH 28 MCHC 33.9 RDW 17.2 Plt Count 20 L* MPV 11.8 Neut % (Auto) 22.3 L Lymph % (Auto) 44.4 [place] % (Auto) 11.1 Eos % (Auto) 22.2 H Baso % (Auto) 0.0 Neut # (Auto) 0.0 L Lymph # (Auto) 0.0 L [place] # (Auto) 0.0 L Eos # (Auto) 0.0 Baso # (Auto) 0.0 Total Counted 100 Immature Gran % 0.0 Nucleated RBC % 0.0 Immature Gran # 0.00 Segmented Neutrophils 32 L Lymphocytes 48 Monocytes 4 Eosinophils 16 H Nucleated RBCs # 0.00 Platelet Estimate Decreased Microcytosis Ovalocytes [place] Cells 3+ Elliptocytes 2+ Morphology Comment Sodium 150 H 149 H Potassium 4.3 5.1 Chloride 123 H 120 H Carbon Dioxide 13 L 17 L Anion Gap 18.3 H 17.1 H BUN 34 H 29 H Creatinine 1.40 H 1.40 H GFR Calculation 50 50 BUN/Creatinine Ratio 24.00 H 20.00 Glucose 130 H 121 H Calculated Osmolality 307.0 H 302.1 Calcium 7.3 L 7.2 L Total Bilirubin 1.80 H 1.20 H AST 118 H 38 H ALT 17 13 L Alkaline Phosphatase 48 49 Lactate Dehydrogenase 301 H 133 Total Protein 4.1 L 4.3 L Albumin 1.5 L 1.6 L Globulin 2.6 2.7 Albumin/Globulin Ratio 0.5 L 0.5 L 07/08/16 08:32 WBC 0.1 L* RBC 3.06 L Hgb 8.5 L Hct 25.6 L MCV 83.7 L MCH 28 MCHC 33.2 RDW 17.0 Plt Count 24 L* MPV 12.9 H Neut % (Auto) 37.5 L Lymph % (Auto) 50.0 [place] % (Auto) 12.5 Eos % (Auto) 0.0 Baso % (Auto) 0.0 Neut # (Auto) 0.0 L Lymph # (Auto) 0.0 L [place] # (Auto) 0.0 L Eos # (Auto) 0.0 Baso # (Auto) 0.0 Total Counted 100 Immature Gran % 0.0 Nucleated RBC % 0.0 Immature Gran # 0.00 Segmented Neutrophils Lymphocytes 50 Monocytes Eosinophils 50 H Nucleated RBCs # 0.00 Platelet Estimate Decreased Microcytosis Slight Ovalocytes Slight [place] Cells Slight Elliptocytes Morphology Comment Sodium Potassium Chloride Carbon Dioxide Anion Gap BUN Creatinine GFR Calculation BUN/Creatinine Ratio Glucose Calculated Osmolality Calcium Total Bilirubin AST ALT Alkaline Phosphatase Lactate Dehydrogenase Total Protein Albumin Globulin Albumin/Globulin Ratio DS: Provider Date of admission: 07/03/16 08:25 Primary care physician: . No PCP Diagnoses: Locally advanced rectal carcinoma post radiation and chemotherapy Acute GI blood loss secondary to rectal cancer Profound and prolonged neutropenia secondary to radiation This 80-year-old man with advanced rectal cancer, locally advanced, without evidence of metastatic disease, had completed chemotherapy and radiation given neoadjuvant ultimately the week prior to this admission. He was admitted with increasing weakness and anemia. He was extremely weak. He required blood transfusions. During the patient's hospital stay, his white cell count dropped from 3600 on admission to 100 with 0 neutrophils within only a few days of admission. He was started on Neupogen. We continued blood transfusions. He remained afebrile but critically ill. The day prior to his , he developed atrial fibrillation. He also had profound thrombocytopenia which we were transfusing him with his platelet count drop below 50,000. I had written an order for this to be done because of his GI bleeding. Earlier today, the patient lost consciousness and subsequently was found to be in cardiac arrest. Resuscitative efforts were unsuccessful. Dr. Carrizales, the consulting [employer] administrator, was in attendance for the cardiac arrest. Attending physician on admission: Avery Sanders MD Consults: 07/08/16 09:35 Consult to Physician [CONS] Routine Comment: Consulting Provider: Cardiology - [facility] Consulting Provider Notified: Yes When should Consulting Provider be notified: Now Consult to Specialist Group: Cardiology When should Consulting Provider be notified: Now Person Notified: BELEN Date Notified: 07/08/16 Time Notified: 09:44 Discharging clinician: Avery Sanders MD
== END 2016-07-09 06:01 | disposition expired | DRG 374 ==
LOC: N.ED 10:19 → N.EDINP 10:19 → N.4E 16:00
PROVIDERS: ADMIT Specialist; ATTEND Specialist